=== PATIENT | male | born 1945 | race Caucasian/White ===

== ENCOUNTER → 2018-02-20 | Day surgery (SDC) | payer OTHER, MEDICAID ==
[~2018-02-20] MED LIST: ACETAMINOPHEN 325 MG TAB ONE; LACTATED RINGER'S 1000 ML INJ 1,000 ML ONE; MIDAZOLAM HCL 2 MG/2 ML VIAL ONE; MORP10IN2 PO; MOXIFLOXACIN 0.5% OPHT SOLN 3 ML BTL ONE; ONDANSETRON HCL 4 MG/2 ML VIAL IV PUSH ONE; OXYC-360 PO; PERC5TAB12 PO; PHENYLEPHRINE HCL 10% OPTH SOLN 5 ML BTL ONE; PROPOFOL 200 MG/20 ML AMP IV ONE; RESP: ALBUTEROL 2.5 MG/3 ML NEB (SCH) ONE; TETRACAINE 0.5% OPTH SOLN 4 ML BTL ONE; diphenhydrAMINE HCL 50 MG/ML VIAL ONE; prednisoLONE ACETATE 1% OPHT SUSP 5 ML BTL ONE
--- NOTE | 2018-02-22 17:22 | MP ---
cc: Harman Hanna MD, Karl E MD DATE OF OPERATION: 02/20/2018 PREOPERATIVE DIAGNOSIS: Dislocated posterior chamber intraocular lens, impending retinal tear, right eye. POSTOPERATIVE DIAGNOSIS: Dislocated posterior chamber intraocular lens, impending retinal tear, right eye. PROCEDURE PERFORMED: Pars plana vitrectomy, scleral fixation of dislocated posterior chamber intraocular lens, endolaser, air fluid exchange, right eye. COMPLICATIONS: None. ESTIMATED BLOOD LOSS: 1 mL ANESTHESIA: Dr. Arnett general. INDICATIONS FOR PROCEDURE: The patient presented with severe vision loss with complete dislocation of his posterior chamber intraocular lens. The patient was explained the risks, benefits and alternatives, elected for surgical correction. DESCRIPTION OF PROCEDURE: After informed consent was obtained, the patient was brought to the operating room where general anesthesia was established. The right eye was prepped and draped in sterile fashion. Betadine in the conjunctival fornix. A 3-port pars plana vitrectomy was established with self-retaining infusion cannula. The core vitreous was evacuated and vitreous traction to the posterior chamber intraocular lens was relieved. The capsule surrounding the posterior chamber intraocular lens was carefully removed. The posterior chamber intraocular lens appeared to be intact. A superior and inferior 23-gauge sclerotomy was fashioned and each haptic externalized. The haptics were then placed in a scleral tunnel from the sclerotomy. The haptics were secured with 7-0 Vicryl. Scleral depression examination revealed areas of retinal thinning and traction with impending retinal tear superiorly. This area was treated with endolaser. A partial air-fluid exchange was carried out. Superior iridectomy was made. The retina was nicely attached and trocars were then removed. Sclerotomies were closed with 7-0 Vicryl suture. Conjunctiva was reapproximated with 6-0 plain gut. Subconjunctival injection of Ancef and dexamethasone were given. The eye was patched with Tobramycin ointment. The patient was brought to recovery room in stable condition, will continue to followup with [facility] for his postoperative care. MD SULY Smith/ , 05:02 PM , 05:20 PM
== END | disposition home or self-care (01) ==
LOC: ESDC 07:45
PROVIDERS: ATTEND Ophthalmology
DX: H27.131 Posterior dislocation of lens, right eye (principal); H33.311 Horseshoe tear of retina without detachment, right eye
CPT/HCPCS: 00142; 00147; 66761; 66825; J1200; J2250; J2405; J3010; J7120; J7613